=== PATIENT | female | born 1980 | race Caucasian/White ===

== ENCOUNTER 2016-09-10 06:05 | Day surgery (SDC) | payer OTHER ==
[~2016-09-10] VITALS: Ht 144.8 cm; Wt 57.3 kg
[~2016-09-10 06:05] MED LIST: CeFAZolin 2 GM/DEXTROSE 0 ML IV ONE; DSS100 PO; ESOM20CA31 PO; IBUP-1546 PO; METF500T4 PO; MIRAUD PO; RINGERS SOLUTION,LACTATED 0 ML IV ONE; RINGERS SOLUTION,LACTATED 1,000 ML IV ONE; [UNRECOGNIZED DRUG - CODE] SD
[2016-09-10] MEDS ORDERED: ACETAMINOPHEN 1000 MG/ISO-OSM 100 ML IV ONE (06:30)
[2016-09-10] MEDS ORDERED: TRAZ-144 PO (06:52)
[2016-09-10] MEDS ORDERED: NAPR375T4 PO (06:54)
[2016-09-10] MEDS ORDERED: TRAM50TA4 PO (06:54)
[2016-09-10] MEDS ORDERED: HYDR-3965 PO (06:54)
[2016-09-10] MEDS ORDERED: CeFAZolin 2 GM/DEXTROSE 50 ML IV ONE (07:30)
== END 2016-09-10 07:30 | disposition home or self-care (01) ==
LOC: SURGERY 06:05
PROVIDERS: ATTEND Surgery
DX: K80.20 Calculus of gallbladder without cholecystitis without obstruction (principal); Z53.8 Procedure and treatment not carried out for other reasons
CPT/HCPCS: J0690; J7120